=== PATIENT | male | born 1955 | race Caucasian/White ===

== ENCOUNTER 2017-02-06 07:40 | Emergency (ER) | payer OTHER ==
[~2017-02-06] VITALS: Ht 170.2 cm; Wt 72.6 kg
[~2017-02-06 07:40] MED LIST: ADULT LOW DOSE81 MG PO; LEVOTHYROXINE112 MCG PO; PRILOSEC20 MG PO; VITAMIN D32000 UNI1 PO
== END 2017-02-06 08:54 | disposition home or self-care (01) ==
LOC: ED 07:40
PROC: 0W3Q0ZZ Control Bleeding in Respiratory Tract, Open Approach (ICD-10-PCS; principal; 2017-02-06)
DX: R04.0 Epistaxis (principal); Z79.82 Long term (current) use of aspirin; Z79.899 Other long term (current) drug therapy
CPT/HCPCS: 30903; 99282

== ENCOUNTER 2021-08-31 06:26 | Day surgery (SDC) | payer MEDICARE, BC ==
[~2021-08-31] VITALS: Ht 170.2 cm; Wt 70.4 kg
--- NOTE | 2021-08-31 08:47 | NUR ---
08/31/21 0847 Olga Bolanos 0842- PT ARRIVES TO PACU AWAKE AND ANSWERING QUESTIONS. PT REPORTS NO PAIN OR NAUSEA. RESP EVEN AND UNLABORED. OXYGEN SAT LOW TO MID 90'S ON 2L VIA NC. 0843- PT PASSING FLATUS. OXYGEN TITRATED OFF. 0846- PT PLACED ON 2L OF OXYGEN VIA NC OXYGEN SAT HIGH 80'S TO LOW 90'S ON RA. PT CONTINUES TO PASS FLATUS.
--- NOTE | 2021-08-31 10:12 | NUR ---
PT ALERT, ORIENTED AND HERE FOR ROUTINE SCOPE. ALL QUESTIONS ASKED ANSWERED. PT'S WILL CENTRIFUGE SEPARATOR TENDER FOLLOWING DC. PT REQUESTED PRAYER, WILL FOLLOW
--- NOTE | 2021-08-31 10:13 | OR ---
[facility] [address], [place] [address] Signed DATE OF OPERATION: 08/31/2021 SURGEON: Brian Owens MD PREOPERATIVE DIAGNOSES: 1. Personal history of colonic polyps in 2008 at age 53. 2. Internal hemorrhoids. POSTOPERATIVE DIAGNOSES: 1. Minimal left colon/sigmoid colon diverticulosis. 2. Minimal internal hemorrhoids. PROCEDURE: Colonoscopy biopsy. ESTIMATED BLOOD LOSS: None. INDICATIONS: Maninder is a 66-year-old gentleman who 1st came for his initial colonoscopy at age 53 in 2008. He had three small tubular adenomas polyps removed along with two small serrated adenomatous polyps removed. He has always done well with Versed and fentanyl. He came back in 2015 at the age of 60. He had minimal internal hemorrhoids at that time. Again, he did well with Versed and fentanyl. Currently, he has no lower GI complaints. There is no family history of colon cancer or polyps. In the office, I gave him a brochure on colonoscopy. He recalls the nature of that test. There is risk including, but not limited to gas bloating, crampy abdominal pain, bleeding, perforation requiring surgery, and missed diagnosis. He also understands the need for the IV conscious sedation. He had expressed understanding and wished to proceed. PROCEDURE NOTE: Maninder was taken into our endoscopy suite and placed in the left lateral decubitus position. He was given 5 mg of Versed and 150 mcg of fentanyl to cover the case. A digital rectal exam was performed and he has good sphincter tone. His prostate is moderately indurated and enlarged. He can always review that with his primary care provider. The adult colonoscope was introduced and advanced all around into the cecum under direct visualization of the camera without difficulty. His prep was good. We could easily see the appendiceal orifice and the ileocecal valve. The scope was slowly withdrawn. We took pictures throughout for photodocumentation. On this occasion, we saw a few diverticula as we came down the distal left colon and into the sigmoid colon. Electronically Signed By: BRIAN OWENS MD 08/31/21 1013 PATIENT NAME: MANINDER SANDY OPERATIVE REPORT DATE OF : 51 REPORT #: [id number] PHYSICIAN: BRIAN OWENS MD PCP: BELINDA THOMAS REPORT IS CONFIDENTIAL AND NOT TO BE RELEASED WITHOUT AUTHORIZATION [address] [address] Signed They were moderate in size, few in number, and scattered about. No polyps on this occasion. The rectum was unremarkable. Upon retroflexion of the scope, he has minimal internal hemorrhoid tissue. After this, the gas was suctioned out and the colonoscope removed. Maninder tolerated the procedure quite well. RECOMMENDATIONS: Maninder can return in 5 years for repeat colonoscopy. MD PÉREZ Michael/MARY /[id number] cc: HARRY Phillips MD Copies: BELINDA THOMAS ANDREW L MD ~ Electronically Signed By: BRIAN OWENS MD 08/31/21 1013 PATIENT NAME: MANINDER SANDY OPERATIVE REPORT DATE OF : 51 REPORT #: [id number] PHYSICIAN: BRIAN OWENS MD PCP: BELINDA THOMAS REPORT IS CONFIDENTIAL AND NOT TO BE RELEASED WITHOUT AUTHORIZATION
== END 2021-08-31 09:30 | disposition home or self-care (01) ==
LOC: OPS 06:26 → DS 06:26 → OPS 07:30 → DS 07:30 → OPS 09:30
PROVIDERS: ATTEND Colon & Rectal Surgery
PROC: 0DJD8ZZ Inspection of Lower Intestinal Tract, Via Natural or Artificial Opening Endoscopic (ICD-10-PCS; principal; 2021-08-31 07:30)
DX: K57.30 Diverticulosis of large intestine without perforation or abscess without bleeding (principal); K64.0 First degree hemorrhoids; Z87.19 Personal history of other diseases of the digestive system; Z87.81 Personal history of (healed) traumatic fracture
CPT/HCPCS: 99153; G0500; J2250; J3010